=== PATIENT | female | born 1960 | race Caucasian/White ===

== ENCOUNTER → 2024-09-13 11:46 | Outpatient (REF) | payer MEDICARE, OTHER, SELFPAY | LOC: WDC 11:46 | PROVIDERS: ATTENDING PHYSICIAN Physician Assistant Medical | DX: Z12.31 Encounter for screening mammogram for malignant neoplasm of breast (principal) | CPT/HCPCS: 77063; 77067 ==

== ENCOUNTER → 2024-10-18 12:26 | Outpatient (REF) | payer MEDICARE, OTHER, SELFPAY | LOC: RAD 12:26 | PROVIDERS: ATTENDING PHYSICIAN Physician Assistant Medical | DX: Z13.820 Encounter for screening for osteoporosis (principal); Z78.0 Asymptomatic menopausal state | CPT/HCPCS: 77080 ==

== ENCOUNTER 2025-04-01 13:18 | Emergency (ER) | payer MEDICARE, OTHER, SELFPAY ==
[2025-04-01 13:27] VITALS: BP 181/99
--- NOTE | 2025-04-01 13:48 | ED.GENMED ---
History of Present Illness
General
Chief Complaint: Chest Pain
Source: patient
Exam Limitations: none
Time Seen by Provider: 04/01/25 13:47
Nursing documentation reviewed up to this point in time: agreed with
History of Present Illness
History of Present Illness:
Note:
CHIEF COMPLAINT(S)
Sharp pain in the ribs and muscles, difficulty sleeping, and dizziness.
HISTORY OF PRESENT ILLNESS
The patient is a 64-year-old female presenting with sharp pain located in the rib and muscle area, difficulty sleeping, and mild dizziness that began at approximately 3:00 AM today. She reports that when she breathes in, it exacerbates the pain. The
patient has no recent history of heavy physical activity or lifting. She attempted to use an inhaler due to a lot of wheezing and to relieve her symptoms, suspecting a possible asthma exacerbation, but noted no improvement. She confirmed
having asthma and previous asthma-like episodes. The patient described the pain as different from any prior experiences, significant enough to suspect something serious. She is currently taking Lyrica for fibromyalgia, which she has had for 30
years, worsened over the past two years, and medication for hypertension. The fibromyalgia has made her sensitive to touch, making the current rib pain particularly distressing.
PAST MEDICAL AND SURGICAL HISTORY
Asthma, Fibromyalgia, Hypertension
MEDICATIONS
Lyrica (pregabalin) for fibromyalgia.
REVIEW OF SYSTEMS
- Respiratory: Wheezing noted, attempted use of inhaler without relief.
- Musculoskeletal: Sharp rib and muscle pain, sensitive to touch.
- Neurological: Mild dizziness described.
PHYSICAL EXAM
General: Alert, no acute distress.
Respiratory: Breathing non-labored, tenderness to palpation in the chest wall area.
Neurological: Alert and oriented to person, place, time, and situation. No focal neurological deficits observed.
PROBLEM LIST
Acute: Rib and muscle pain, Dizziness
Chronic: Asthma, Fibromyalgia, Hypertension
PLAN
- Order chest X-ray and laboratory tests to assess underlying causes.
- Evaluate effectiveness of the patients inhaler for asthma; consider prescribing a new inhaler.
- Address pain management, potentially relating to fibromyalgia, while ruling out any acute pulmonary issues.
- Follow up on the patients chronic conditions and current medications for fibromyalgia and hypertension.
DIFFERENTIAL DIAGNOSIS
The differential diagnosis includes, in no particular order and is not limited to:
1. Costochondritis
2. Asthma exacerbation
3. Pulmonary embolism
4. Pleuritis
5. Musculoskeletal strain
6. Pneumonia
7. Myocardial ischemia
8. Rib fracture
9. Anxiety-related symptomatology
10. Fibromyalgia flare-up
CARE-UPDATE
04/01/25 - 16:36
The patient continues to experience chest pain, suspected to be chest wall-related. There are no indications of acute coronary syndrome or pulmonary embolism. The patient is suitable for discharge with instructions to follow up with primary care for
re-evaluation and monitoring of blood pressure. Return precautions have been communicated clearly to the patient.
Disposition:
SUMMARY OF ENCOUNTER
The patient, a 64-year-old female, presented to the emergency department with sharp rib and muscle pain, difficulty sleeping, and mild dizziness beginning earlier in the day. The pain was exacerbated by inhalation. She has a history of asthma,
fibromyalgia, and hypertension, and has been taking pregabalin. The patient attempted to use an inhaler without relief. After evaluation, including a chest X-ray and cardiac enzyme tests, acute coronary syndrome (ACS) and pulmonary embolism
(PE) were not suspected. The chest X-ray was reported as normal, and troponin levels were normal as well. The patient reported no acute distress during the physical examination.
DISPOSITION
Discharge home.
ASSESSMENT
Chest wall pain possibly related to fibromyalgia exacerbation and/or musculoskeletal strain.
PLAN
The patient should follow up with her primary care physician to re-evaluate the management of her chronic conditions and monitor blood pressure. Consideration for a new inhaler prescription for asthma management.
INDEPENDENT REVIEW OF LABS AND INTERPRETATION OF TESTS
My independent interpretation of the chest X-ray is normal findings. My independent review of the troponin test indicates normal levels.
PATIENT EDUCATION AND COUNSELING
The patient was advised on return precautions and to seek immediate care if symptoms worsen or new symptoms arise. She was educated on the potential causes of her chest pain and possible management strategies for chronic conditions.
FOLLOW-UP INSTRUCTIONS
Please follow up with your primary care physician for re-evaluation.
MEDICAL DECISION MAKING
- Number and Complexity of Problems Addressed: Chronic conditions affecting care include asthma, fibromyalgia, and hypertension. DDx list: Costochondritis, asthma exacerbation, pleuritis, musculoskeletal strain, rib fracture, fibromyalgia flare-up.
- Data:
- Category 1: My independent interpretation of chest X-ray and examination of troponin results.
- Category 3: Return precaution discussion with the patient.
- Risk: Consideration of Admission/Observation: Escalation of care including admission/observation was considered given the complexity and risk of the patients presenting complaint, exam findings, and/or their underlying comorbidities. However,
ultimately I feel the patient is safe for outpatient management with close follow-up. Reasoning: Work-up reassuring, does not reveal any acute life/organ-threatening processes, patients symptoms well controlled upon reevaluation, reexamination is
reassuring, vitals are stable, patient agreeable with discharge, reliable for follow-up.
DIAGNOSIS
- Chest wall pain, unspecified (ICD-10: R07.89)
- Asthma (ICD-10: J45.909)
- Fibromyalgia (ICD-10: M79.7)
- Essential (primary) hypertension (ICD-10: I10)
Phy Exam
Physical Exam
Physical Exam:
.
Scores
Heart Score for Chest Pain Patients
STEMI patient?: No
History: Slightly or Non-Suspicious
ECG: Normal
Age: >45 - <65 years
Risk Factors: 1 or 2 Risk Factors
Troponin: </= Normal Limit
Heart Score for Chest Pain Patients: 2
Heart Score Risk: 2.5% MACE over next 6 weeks
Course
Orders/Labs/Results
Orders:
Orders
04/01/25 13:19
Electrocardiogram (*1) Urgent
Reason for Study: Chest Pain
EKG- Treatment ONCE
04/01/25 14:01
IV Insert/Care/Rem.- Treatment PRN
04/01/25 14:02
CR Chest - 2 Views Urgent
Comment:
Reason For Exam: chest pain
04/01/25 14:37
Complete Blood Count/With Diff Urgent
Comprehensive Metabolic Panel Urgent
Troponin I Urgent
Abnormal Lab Results
04/01/25
14:37
WBC 14.3 H 10^3/uL
(4.8-10.8)
MCHC 32.5 L g/dL
(33.0-37.0)
Abs Immat Gran (auto) 0.1 H 10^3/uL
(0-0.05)
Absolute Neuts (auto) 11.4 H 10^3/uL
(1.4-6.5)
Absolute Monos (auto) 1.0 H 10^3/uL
(0.1-0.6)
Neutrophils % 79.5 H %
(42.2-75.2)
Lymphocytes % 11.6 L %
(20.5-51.1)
Potassium 5.2 H mmol/L
(3.5-5.1)
Glucose 108 H mg/dl
(70-99)
04/01/25 14:37
04/01/25 14:37
Vital Signs
Initial and Last Documented VS:
Initial Vital Signs
Temp Pulse Resp Pulse Ox
99.9 F 104 22 99
04/01/25 13:20 04/01/25 13:20 04/01/25 13:20 04/01/25 13:20
Last Documented Vital Signs
Temp Pulse Resp BP Pulse Ox
99.9 F 94 18 179/71 99
04/01/25 13:20 04/01/25 15:30 04/01/25 15:30 04/01/25 15:00 04/01/25 15:30
*Pulse Oximetry
SaO2: 99
Oxygen Mode of Delivery: Room air
Patient hypoxic: no
*Critical Care Note
Total Time (30-74mins, 75-104mins- exclusive of procedures): Not Applicable
ED Attending Note
-
Portions of this chart may have been created with voice recognition software.� Occasional wrong word or��sound alike� substitutions may have occurred due to the inherent limitations of voice recognition software.
Discharge Plan
Departure
Patient Disposition: Home (Routine Discharge)
Date of Disposition: 04/01/25
Time of Disposition: 16:38
Patient with high blood pressure during this ER visit?: Yes
Condition: Good
Discharge Problem:
Acute chest wall pain
Instructions: Chest Pain That Is Not Caused by the Heart (DC), BLOOD PRESSURE
Prescriptions:
No Action
prednisone 20 mg Tablet
60 mg PO DAILY
Rx Instructions:
take with food for 30 days
citalopram 40 mg Tablet
40 mg PO DAILY
lisinopril 20 mg Tablet
20 mg PO DAILY
simvastatin 20 mg Tablet
20 mg PO HS
montelukast [Singulair] 10 mg Tablet
10 mg PO DAILY
albuterol sulfate 90 mcg/actuation Hfa Aerosol Inhaler
2 inh INHALATION .Q4-6H PRN (Reason: asthma)
fluticasone propionate [Flonase Allergy Relief] 50 mcg/actuation [place],Suspension
1 spray INTRANASAL DAILY
Systane (PF) 0.4-0.3 % [place]
1 drp BOTH EYES DAILY
PreserVision AREDS-2 250-90-40-1 mg Tablet,Chewable
1 tab PO DAILY
Centrum Silver
1 tab PO DAILY
Probiotic
1 cap PO DAILY
Vitamin D3
1 tab PO DAILY
Patient Comments:
patient does not know dose
albuterol sulfate [ProAir HFA] 90 mcg/actuation Hfa Aerosol Inhaler
2 puff INHALATION 6XD PRN (Reason: short of breath)
calcium carbonate 600 mg calcium (1,500 mg) Tablet
1,200 mg PO DAILY
Referrals:
Maime Quiles PA-C [Family Provider, Family Practice] - Call in 1-3 days for appt
Interventions
Interventions:
*Risk Screen - Suicide Last Done: 04/01/25 13:20
*General Assessment Last Done: 04/01/25 13:20
*Neglect/Abuse Screening Last Done: 04/01/25 13:20
*ED COVID-19 Vaccine History Last Done: 04/01/25 13:20
ED- Cardiac Assessment Last Done: 04/01/25 16:09
Discharge Date and Time
Print Language: LIBYAN
[2025-04-01 14:50] LABS: Hematocrit 38.8 % (37.0-47.0); Hemoglobin 12.6 g/dL (12.0-16.0); Mean Corp Hgb Conc. 32.5 g/dL (33.0-37.0); Mean Corpuscular Volume 92.4 fL (81.0-99.0); Nucleated Red Blood Cells % 0 %; Platelet Count 329 10^3/uL (130-400); Red Cell Dist. Width 13.1 % (11.5-14.5)
[2025-04-01 15:00] VITALS: BP 179/71
[2025-04-01 15:05] LABS: ALT (SGPT) 16 U/L (0-35); AST (SGOT) 18 U/L (14-36); Albumin 4.3 g/dl (3.5-5.0); Alkaline Phosphatase 87 U/L (38-126); Blood Urea Nitrogen 17 mg/dl (7-17); Calcium 9.1 mg/dl (8.4-10.2); Carbon Dioxide 29 mmol/L (22-30); Chloride 104 mmol/L (98-107); Glucose 108 mg/dl (70-99); Potassium 5.2 mmol/L (3.5-5.1); Sodium 138 mmol/L (135-145); Total Protein 7.0 g/dl (6.3-8.2); eGFR > 60.00
[2025-04-01 15:15] LABS: Troponin I < 0.012 ng/ml
[2025-04-01 16:43] VITALS: BP 173/82
== END 2025-04-01 16:54 | disposition home or self-care (01) ==
LOC: EMR 13:18
PROVIDERS: EMERGENCY PHYSICIAN Emergency Medicine; FAMILY PHYSICIAN Physician Assistant Medical
DX: R07.89 Other chest pain (principal); I10 Essential (primary) hypertension; J45.909 Unspecified asthma, uncomplicated; M79.7 Fibromyalgia; Z79.899 Other long term (current) drug therapy
CPT/HCPCS: 99285; 71046; 80053; 84484; 85025; 93005

== ENCOUNTER 2025-06-12 06:23 | Day surgery (SDC) | payer MEDICARE, OTHER, SELFPAY | END 2025-06-12 14:23 | disposition home or self-care (01) | LOC: GI 06:23 | PROVIDERS: ATTENDING PHYSICIAN Internal Medicine; FAMILY PHYSICIAN Physician Assistant Medical | DX: Z12.11 Encounter for screening for malignant neoplasm of colon (principal); K64.8 Other hemorrhoids; K55.20 Angiodysplasia of colon without hemorrhage; K63.5 Polyp of colon; Z86.0100 Personal history of colon polyps, unspecified | CPT/HCPCS: 45385; 88305 ==